=== PATIENT | female | born 1990 | race Caucasian/White ===

== ENCOUNTER 2016-12-22 10:51 | Outpatient (CLI) | payer OTHER | END 2016-12-22 10:52 | disposition home or self-care (01) | DX: M50.822 Other cervical disc disorders at C5-C6 level (principal) ==

== ENCOUNTER 2017-09-17 17:52 | Outpatient (CLI) | payer OTHER | END 2017-09-17 17:53 | disposition EMS.NT | LOC: EMS 17:52 | PROVIDERS: ATTEND Surgery | DX: R42 Dizziness and giddiness (principal) ==

== ENCOUNTER 2018-01-24 11:45 | Outpatient (CLI) | payer OTHER | END 2018-01-24 11:46 | disposition home or self-care (01) | LOC: DI 11:45 | PROVIDERS: ATTEND Family Medicine | DX: R00.2 Palpitations (principal); R55 Syncope and collapse | CPT/HCPCS: 93306 ==